=== PATIENT | male | born 1990 | race African-American/Black ===

== ENCOUNTER 2019-06-18 15:48 | Emergency (ER) | payer OTHER ==
[~2019-06-18] VITALS: Ht 170.2 cm; Wt 90.7 kg
[2019-06-18] MEDS ORDERED: IBUPROFEN 600600 M1 PO (17:43)
[2019-06-18] MEDS ORDERED: FLEXERIL PO (17:43)
[2019-06-18 23:35] VITALS: BP 138/72
== END 2019-06-18 23:36 | disposition home or self-care (01) ==
LOC: ER 15:48
DX: M54.5 Low back pain (principal); M54.6 Pain in thoracic spine; M25.561 Pain in right knee; V49.59XA Passenger injured in collision with other motor vehicles in traffic accident, initial encounter; Y93.89 Activity, other specified; Y92.89 Other specified places as the place of occurrence of the external cause; Y99.8 Other external cause status